=== PATIENT | female | born 1975 | race Caucasian/White ===

== ENCOUNTER 2018-11-08 14:47 | Emergency (ER) | payer OTHER ==
[~2018-11-08] VITALS: Ht 157.5 cm; Wt 85.0 kg
[2018-11-08 14:53] VITALS: Ht 157.5 cm; Wt 85.0 kg
[2018-11-08] MEDS ORDERED: ONDANSETRON 4 MG INJ IV STA (16:07)
[2018-11-08] MEDS ORDERED: morphine 4 MG/ML VIAL IV STA (16:07)
[2018-11-08] MEDS ORDERED: ONDA8TAB14 PO (19:26)
[2018-11-08] MEDS ORDERED: IBUP-1542 PO (19:26)
--- NOTE | 2018-11-08 19:29 | ERD ---
ER Documentation Chief Complaint Chief Complaint VAGINAL BLEEDING WITH DISCOMFORT X 5 DAYS & LUQ PAIN HPI This 43-year-old female presents with 5 days. She also has had some nonbilious nonbloody vomiting intermittently. She denies diarrhea, urinary complaints. She denies any right-sided abdominal pain lower abdominal pain. Patient also states that she had some vaginal bleeding when earlier than usual. Menstrual periods are mostly monthly. She denies . ROS All systems reviewed and are negative except as per history of present illness. Medications Home Meds Active Scripts Ondansetron (Ondansetron Odt) 8 Mg Tab.rapdis, 8 MG PO Q6H PRN for NAUSEA AND/OR VOMITING, #8 TAB Prov:JAIR RUTH MD 11/08/18 Ibuprofen* (Ibuprofen*) 600 Mg Tablet, 600 MG PO Q6, #20 TAB Prov:JAIR RUTH MD 11/08/18 Allergies Allergies: Coded Allergies: No Known Allergy (Unverified , 11/08/18) PMhx/Soc History of Surgery: Yes (C SECTION ) Anesthesia Reaction: No Hx Neurological Disorder: No Hx Respiratory Disorders: No Hx Cardiac Disorders: No Hx Psychiatric Problems: No Hx Miscellaneous Medical Probl: No Hx Alcohol Use: No Hx Substance Use: No Hx Tobacco Use: No Smoking Status: Never smoker Physical Exam Vitals Vital Signs Date Temp Pulse Resp B/P (MAP) Pulse Ox O2 O2 Flow FiO2 Time Delivery Rate 11/08/18 98.4 69 18 124/68 99 14:53 (86) Physical Exam Const: No acute distress Head: Atraumatic Eyes: Normal Conjunctiva ENT: Normal External Ears, Nose and Mouth. Neck: Full range of motion. No meningismus. Resp: Clear to auscultation bilaterally Cardio: Regular rate and rhythm, no murmurs Abd: Soft, mild left lower quadrant tenderness. No Franco sign and no tender ness McBurney's point. No rebound., non distended. Normal bowel sounds Skin: No petechiae or rashes Back: No midline or flank tenderness Ext: No cyanosis, or edema Neur: Awake and alert Psych: Normal Mood and Affect Result Diagram: 11/08/18 1620 11/08/18 1620 Results 24 hrs Laboratory Tests Test 11/08/18 16:20 11/08/18 16:24 White Blood Count 11.4 10^3/ul Red Blood Count 4.52 10^6/ul Hemoglobin 12.9 g/dl Hematocrit 40.7 % Mean Corpuscular Volume 90.0 fl Mean Corpuscular Hemoglobin 28.5 pg Mean Corpuscular Hemoglobin Concent 31.7 g/dl Red Cell Distribution Width 13.9 % Platelet Count 302 10^3/UL Mean Platelet Volume 10.5 fl Immature Granulocytes % 0.500 % Neutrophils % 70.3 % Lymphocytes % 20.4 % Monocytes % 7.1 % Eosinophils % 1.3 % Basophils % 0.4 % Nucleated Red Blood Cells % 0.0 /100WBC Immature Granulocytes # 0.060 10^3/ul Neutrophils # 8.0 10^3/ul Lymphocytes # 2.3 10^3/ul Monocytes # 0.8 10^3/ul Eosinophils # 0.2 10^3/ul Basophils # 0.1 10^3/ul Nucleated Red Blood Cells # 0.0 10^3/ul Urine Color YELLOW Urine Clarity CLEAR Urine pH 7.0 Urine Specific [place] 1.015 Urine Ketones NEGATIVE mg/dL Urine Nitrite NEGATIVE mg/dL Urine Bilirubin NEGATIVE mg/dL Urine Urobilinogen NEGATIVE mg/dL Urine Leukocyte Esterase NEGATIVE Brissa/ul Urine Microscopic RBC 0 /HPF Urine Microscopic WBC 1 /HPF Urine Squamous Epithelial Cells FEW /HPF Urine Bacteria FEW /HPF Urine Hemoglobin 1+ mg/dL Urine Glucose NEGATIVE mg/dL Urine Total Protein NEGATIVE mg/dl Sodium Level 142 mmol/L Potassium Level 3.8 mmol/L Chloride Level 103 mmol/L Carbon Dioxide Level 28 mmol/L Anion Gap 11 Blood Urea Nitrogen 12 mg/dl Creatinine 0.64 mg/dl Est Glomerular Filtrat Rate mL/min > 60 mL/min Glucose Level 95 mg/dl Calcium Level 9.4 mg/dl Total Bilirubin 0.0 mg/dl Direct Bilirubin 0.00 mg/dl Indirect Bilirubin 0.0 mg/dl Aspartate Amino Transf (AST/SGOT) 21 IU/L Alanine Aminotransferase (ALT/SGPT) 22 IU/L Alkaline Phosphatase 77 IU/L Total Protein 7.8 g/dl Albumin 4.4 g/dl Globulin 3.40 g/dl Albumin/Globulin Ratio 1.29 Lipase 67 U/L POC Beta HCG, Qualitative NEGATIVE Current Medications Medications Dose Sig/Suad Start Time Status Last (Trade) Ordered Route PRN Stop Time Admin Dose Reason Admin Morphine 4 mg ONCE STAT 3/5/19 DC 11/08/18 Sulfate IV 16:07 11/08/18 16:22 (morphine) 16:08 Ondansetron 4 mg ONCE STAT 11/08/18 DC 11/08/18 HCl (Zofran IV 16:07 11/08/18 16:22 Inj) 16:08 Procedures/MDM Urine shows no significant signs of infection or acute abnormalities. CBC shows mild leukocytosis. CMP and lipase normal. HCG is negative. Concern is for diverticulitis. CT abdomen pelvis shows diverticulosis without findings of diverticulitis or acute abnormalities. Patient was given Zofran 4 mg IV, morphine 4 mg IV. Patient had a benign abdomen on serial exam. Patient presents with left mid abdominal pain and vomiting of uncertain etiology. She may have viral gastroenteritis. Current signs or symptoms do not suggest acute abdomen, complications of , tubo-ovarian abscess, PID, appendicitis, hepatobiliary disease. She will be discharged home with a short course of ibuprofen, Zofran, primary care follow-up and return precautions. The patient was stable with no new complaints during the ER course. Clinically, there is no current evidence to suggest meningitis, sepsis, acute abdomen, pneumonia, s troke, acute coronary syndrome, pulmonary embolism, aortic dissection or any other emergent condition appearing to require further evaluation or hospitalization. Patient counseled regarding my diagnostic impression and care plan. Prior to discharge all questions answered. Pt agrees with treatment plan and understands strict return precautions. Pt is instructed to follow up with primary care provider within 24-48 hours. Precautionary instructions provided including instructions to return to the ER if not improving or for any worsening or changing symptoms or concerns. Departure Diagnosis: Primary Impression: Abdominal pain Abdominal location: lower abdomen, unspecified Qualified Codes: R10.30 - Lower abdominal pain, unspecified Condition: Stable Patient Instructions: Abdominal Pain Additional Instructions: Examination showed no acute abnormalities today. Uncertain cause of symptoms. Recheck for fevers, vomiting, blood, worsening pain, new worsening symptoms with primary doctor this week. JAIR RUTH MD Nov 08, 2018 19:29
[2018-11-08 19:40] VITALS: BP 121/90; PULSE 80; RESP 19
== END 2018-11-08 19:41 | disposition home or self-care (01) ==
LOC: FTE 14:47
DX: R10.32 Left lower quadrant pain (principal); R11.10 Vomiting, unspecified
CPT/HCPCS: 36415; 74176; 80053; 81001; 81025; 83690; 85025; 96374; 96375; J2270; J2405; Z7502